=== PATIENT | male | born 1965 | race Caucasian/White ===

== ENCOUNTER 2022-03-23 08:23 | Outpatient (CLI) | payer OTHER ==
[2022-03-23 09:22] LABS: #Basophils 0.1 10x3/uL (0.0-0.2); #Eosinphils 0.4 10x3/uL (0.0-0.5); #Monocytes 0.5 10x3/uL (0.0-1.1); %Basophils 1.6 % (0.0-2.0); %Eosinophils 6.7 % (0.0-6.0); %Monocytes 8.8 % (0.0-10.0); %Neutrophils 48.6 % (40.0-75.0); Hemoglobin 15.2 g/dL (13.5-17.5); Mean Corpuscular Hemoglobin 30.5 pg (27.0-33.0); Mean Platelet Volume 10.7 fl (7.4-10.4); Platelet Count 257 10x3/uL (150-450); RBC Distribution Width 12.3 % (11.5-14.5); Red Blood Cell (RBC) Count 4.99 10x6/uL (4.32-5.72); White Blood Cell (WBC) Count 6.1 10x3/uL (3.5-10.5)
== END 2022-03-23 08:24 | disposition home or self-care (01) ==
LOC: LABBT 08:23
PROVIDERS: ATTEND Orthopaedic Surgery Hand Surgery
DX: Z01.818 Encounter for other preprocedural examination (principal); M65.331 Trigger finger, right middle finger; G56.01 Carpal tunnel syndrome, right upper limb
CPT/HCPCS: 85025; 93005; 93010

== ENCOUNTER 2022-08-27 06:06 | Day surgery (SDC) | payer OTHER ==
[2022-08-27] MEDS ORDERED: Bupivacaine HCl 0.5%/Epinephrine 1:200,000/PF 30 ml Vial ONE (06:36)
[2022-08-27] MEDS ORDERED: Thrombin 5000 UNITS/5 ML VIAL ONE (06:36)
[2022-08-27] MEDS ORDERED: Famotidine/PF 20 mg/2ml Vial ONE (07:39)
[2022-08-27] MEDS ORDERED: Sodium Chloride 0.9% 100 ML ONE ×2 (07:41→11:34)
[2022-08-27] MEDS ORDERED: CEFAZOLIN 2 GM VIAL ONE ×2 (07:41→11:34)
[2022-08-27] MEDS ORDERED: Fentanyl 250 MCG/5 ML VIAL ONE (07:59)
[2022-08-27] MEDS ORDERED: PHENYLEPHRINE-NS 100 MCG/ML 10 ML SYRINGE ONE (08:14)
[2022-08-27] MEDS ORDERED: Ketorolac Tromethamine 30 MG/ML VIAL ONE (08:14)
[2022-08-27] MEDS ORDERED: Lidocaine 1% PF 5 ML VIAL ONE (08:14)
[2022-08-27] MEDS ORDERED: NEOSTIGMINE 3 MG/3 ML SYR 3 MG/3 ML SYRINGE ONE (08:14)
[2022-08-27] MEDS ORDERED: ePHEDrine Sulfate 50 MG/10 ML VIAL ONE (08:14)
[2022-08-27] MEDS ORDERED: Rocuronium Bromide 10 MG/ML (10ML VIAL) ONE (08:14)
[2022-08-27] MEDS ORDERED: PROPOFOL 200 MG/20 ML VIAL ONE (08:14)
[2022-08-27] MEDS ORDERED: Glycopyrrolate 0.2 MG/ML 5 ML SYRINGE ONE (08:14)
[2022-08-27] MEDS ORDERED: Ondansetron PF 4 MG/2 ML Vial ONE (08:14)
[2022-08-27] MEDS ORDERED: Dexamethasone 20 MG/5 ML VIAL ONE (08:14)
[2022-08-27] MEDS ORDERED: Morphine Sulfate 2 MG/ML SYRINGE SLOW IVP PRN (08:44)
[2022-08-27] MEDS ORDERED: Meperidine HCl/PF 25 MG/ML VIAL SLOW IVP PRN (08:44)
[2022-08-27] MEDS ORDERED: HYDROmorphone 2 MG/ML VIAL SLOW IVP PRN (08:44)
[2022-08-27] MEDS ORDERED: Promethazine HCl 25 MG/ML VIAL IM PRN (08:44)
[2022-08-27] MEDS ORDERED: PACU-Morphine 4MG/ML VIAL SLOW IVP PRN (08:44)
[2022-08-27] MEDS ORDERED: Ondansetron HCl/PF 4 MG/2 ML Vial IVP PRN (08:44)
[2022-08-27] MEDS ORDERED: HYDROmorphone 0.5 MG/0.5 ML SYRINGE ONE ×2 (09:34→09:56)
[2022-08-27] MEDS ORDERED: Tamsulosin HCl 0.4 MG CAP ONE ×2 (09:42→13:26)
== END 2022-08-27 15:07 | disposition home or self-care (01) ==
LOC: SDC 06:06
PROVIDERS: ATTEND Neurological Surgery
PROC: 0SB20ZZ Excision of Lumbar Vertebral Disc, Open Approach (ICD-10-PCS; principal; 2022-08-27)
DX: M51.16 Intervertebral disc disorders with radiculopathy, lumbar region (principal); E78.5 Hyperlipidemia, unspecified; Z87.891 Personal history of nicotine dependence; Z90.89 Acquired absence of other organs; Z79.899 Other long term (current) drug therapy
CPT/HCPCS: C1713; J1100; J1170; J1885; J2405; J2704; J3010; J3490; S0028

== ENCOUNTER 2022-09-21 09:14 | Outpatient (CLI) | payer OTHER ==
[2022-09-21] MEDS ORDERED: Iopamidol 370 76% 100 ML VIAL ONE (14:00)
== END 2022-09-21 09:15 | disposition home or self-care (01) ==
LOC: CT 09:14
PROVIDERS: ATTEND Family Medicine
DX: R22.1 Localized swelling, mass and lump, neck (principal); G93.9 Disorder of brain, unspecified
CPT/HCPCS: 70492; 82565; Q9967